=== PATIENT | female | born 1940 | race Caucasian/White ===

== ENCOUNTER → 2020-12-13 | Day surgery (SDC) | payer MEDICARE, BC ==
[2020-12-11 17:12] LABS: BASOPHILS % (AUTO) 0.8 % (0-1); EOSINOPHILS # (AUTO) 0.2 X10'3 (0-0.9); EOSINOPHILS % (AUTO) 4.3 % (0-6); LYMPHOCYTES # (AUTO) 1.5 X10'3 (1.1-4.8); LYMPHOCYTES % (AUTO) 35.7 % (21-51); MEAN CORPUSCULAR HGB CONC 34.3 g/dL (33.0-36.5); MEAN CORPUSCULAR VOLUME 90.5 FL (78-98); MEAN PLATELET VOLUME 6.8 FL (7.4-10.4); MONOCYTES # (AUTO) 0.5 X10'3 (0-0.9); MONOCYTES % (AUTO) 12.9 % (2-12); NEUTROPHILS # (AUTO) 1.9 X10'3 (1.8-7.7); NEUTROPHILS % (AUTO) 46.3 % (42-75); PRE OP HEMATOCRIT 36.6 % (35.0-45.0); PRE OP HEMOGLOBIN 12.6 g/dL (12.0-16.0); PRE OP PLATELET COUNT 223 X10'3 (140-440); RED BLOOD COUNT 4.05 X10'6 (4.20-5.60); RED CELL DISTRIBUTION WIDTH 12.4 % (11.5-14.5)
[2020-12-11 17:28] LABS: ALBUMIN 3.9 G/DL (3.4-5.0); ALBUMIN/GLOBULIN RATIO 1.1 (1.1-1.5); ALKALINE PHOSPHATASE 86 IU/L (46-116); BLOOD UREA NITROGEN 17 MG/DL (7-18); BUN/CREATININE RATIO 21.3 (6.6-38.0); CALCIUM 9.2 MG/DL (8.5-10.1); CHLORIDE 108 MMOL/L (99-107); PRE OP ALT 30 U/L (30-65); PRE OP ANION GAP 9 (8-16); PRE OP AST 23 U/L (10-37); PRE OP BILIRUB, TOTAL 0.5 MG/DL (0.0-1.0); PRE OP GLUCOSE 103 MG/DL (70-104); PRE OP SODIUM 146 MMOL/L (135-145); TOTAL CARBON DIOXIDE 29.4 MMOL/L (24-32); TOTAL PROTEIN 7.4 G/DL (6.4-8.2); eGFR 69 ML/MIN
[~2020-12-13] VITALS: Ht 162.6 cm; Wt 71.0 kg
[~2020-12-13] MED LIST: AMLO2.5T2 PO; ASCO-157 PO; ATOR40TA PO; BUPIVAcaine/PF 2.5mg/ml (0.25%) 10ml vial ONE; CALC250T2 PO; DOCUMENT DATE & TIME OF BETA-BLOCKER PO ONE; GABA-534 PO; LEVO175T2 PO; LIDOcaine 0.5% (5mg/ml) 50ml vial ONE; MULT-1085 PO; OMEG1CAP20 PO; RIVA20TA PO; SOTA80TA73 PO; VITA1CAP45 PO; WHEA360P PO; cefazolin/dext.iso 2gm/100ml IV ONE; famotidine 20mg tablet PO ONE; fentaNYL/PF 50MCG/1 ML 2ML syringe ONE; midazolam 1 mg/ML 2ml injection ONE; ringers solution, lacted 1,000 ML IV SCH
[2020-12-13 08:10] VITALS: BP 131/69
[2020-12-13 09:33] VITALS: BP 103/58
--- NOTE | 2020-12-13 09:33 | NUR ---
Patient arrived via gurney from OR. LR running via left wrist 20g PIV. Right arm bandage CDI. VSS. No oxygen, denies pain. Sleepy but responds to verbal stimuli.
[2020-12-13 09:43] VITALS: BP 113/66
[2020-12-13 09:53] VITALS: BP 111/65
[2020-12-13 10:03] VITALS: BP_SYST 103; BP_SYST 114; BP_DIAS 58; BP_DIAS 66
--- NOTE | 2020-12-13 10:03 | NUR ---
Patient given discharge instructions and states she understands. IV removed from left wrist. Bandage to right hand CDI. Denies pain. Discharged home to with all belongings. Instructed to call Dr. Vivas's office with any issues or complications.
== END | disposition home or self-care (01) ==
LOC: PAS 07:55
PROVIDERS: ATTEND Orthopaedic Surgery Hand Surgery
DX: G56.01 Carpal tunnel syndrome, right upper limb (principal); M65.321 Trigger finger, right index finger; M65.331 Trigger finger, right middle finger; M65.341 Trigger finger, right ring finger; M72.0 Palmar fascial fibromatosis [Dupuytren]; I48.91 Unspecified atrial fibrillation; I10 Essential (primary) hypertension; E78.5 Hyperlipidemia, unspecified; E03.9 Hypothyroidism, unspecified; M18.0 Bilateral primary osteoarthritis of first carpometacarpal joints; Z20.822 Contact with and (suspected) exposure to COVID-19; Z79.899 Other long term (current) drug therapy; Z90.49 Acquired absence of other specified parts of digestive tract; Z98.890 Other specified postprocedural states; Z87.891 Personal history of nicotine dependence; Z72.89 Other problems related to lifestyle; Z85.828 Personal history of other malignant neoplasm of skin
CPT/HCPCS: 26055; 26121; 36415; 64721; 80053; 82948; 85025; 87635; 93005; C9803; J2001; J2250; J3010; J3490; Z7506; Z7512; A4215; J7120